=== PATIENT | male | born 1985 ===

== ENCOUNTER 2025-05-05 18:21 | Emergency (ER) | payer SELFPAY ==
--- NOTE | ~2025-05-05 | XR_ITS ---
EXAMINATION: XR chest 2V DATE: 05/05/2025 19:02 INDICATION: Chest pain TECHNIQUE: Frontal and lateral views of the chest were obtained. COMPARISON: None. FINDINGS: Heart size is normal. Lungs are clear of acute processes. IMPRESSION: 1. No acute pulmonary findings. Reviewed, dictated and finalized at location T. P EXERCISE MANAGER
--- NOTE | 2025-05-05 18:23 | ECG_ITS ---
Test Date: 2025-05-05 18:28:42 Measurements Intervals [place] Rate: 81 P: 49 RI: 175 QRS: -21 QRSD: 109 T: 37 QT: 355 QTc: 412 Interpretive Statements SINUS RHYTHM WITH SINUS ARRHYTHMIA BORDERLINE LEFT AXIS DEVIATION [QRS AXIS < -20] BORDERLINE ECG No previous ECG available for comparison Electronically Signed On 05-06-2025 07:52:03 PROJECT ASSISTANT by Clark Alvarez M.D.
[2025-05-05 18:54] LABS: Hematocrit 45.9 % (42.0-52.0); Hemoglobin 15.9 g/dL (14.0-18.0); Immature Granulocyte Percent A 0.9 % (0-0.5); Lymphocytes Absolute Auto 2.70 K/mm3 (0.9-3.2); Mean Corpuscular HGB Conc 34.6 g/dl (32-36); Mean Corpuscular Hemoglobin 29.0 pg (26-34); Mean Corpuscular Volume 83.8 fl (80-100); Nucleated Red Blood Cells Absolute Auto 0.000 K/mm3 (0.0-0.012); Nucleated Red Blood Cells Perc 0.0 % (0.0-0.2); Platelet Count Result 309 k/mm3 (150-375); Red Blood Count 5.48 M/mm3 (4.6-6.20); White Blood Count 13.0 K/mm3 (4.5-10.0)
[2025-05-05 19:06] LABS: INR 1.1; Prothrombin Time 13.9 Seconds (11.1-14.7)
[2025-05-05 19:07] LABS: Partial Thromboplastin Time 30.3 Seconds (22.3-36.8)
[2025-05-05 19:08] LABS: Alanine Aminotransferase 29 U/L (6-50); Albumin Level 4.9 g/dL (3.5-5.1); Alkaline Phosphatase 103 U/L (38-126); Anion Gap 8 mmol/L (4-12); Aspartate Amino Transferase 34 U/L (17-59); Bilirubin,Total 0.8 mg/dL (0.2-1.3); Blood Urea Nitrogen 10 mg/dL (9-20); Calcium 8.9 mg/dL (8.4-10.2); Carbon Dioxide 26 mmol/L (22-30); Chloride 102 mmol/L (98-107); Estimated Glomerular Filt Rate > 60; Glucose 106 mg/dL (65-110); Lipase 116 U/L (23-300); Potassium 3.6 mmol/L (3.4-5.0); Sodium 136 mmol/L (137-145); Total Protein 8.0 g/dL (6.3-8.2)
[2025-05-05 19:18] LABS: Troponin I < 0.012 ng/mL (0.000-0.034)
[2025-05-05 21:16] VITALS: BP 156/105; PULSE 87; RESP 18; TEMP 36.4; O2SAT 97
--- NOTE | 2025-05-05 22:00 | PC.NURSE ---
Pt walked up to triage desk stating that he is aware of the lab test that he is waiting on, but would like to just leave and look at his results on the portal. Pt ambulatory with steady gait and axox4 at this time.
== END 2025-05-05 22:00 | disposition left against medical advice (07) ==
LOC: ANHED 23:00
PROVIDERS: Emergency Provider Emergency Medicine
DX: R07.89 Other chest pain (principal)
CPT/HCPCS: 36415; 71046; 80053; 83690; 84484; 85025; 85610; 85730; 93005; 99199